=== PATIENT | male | born 1940 | race Two or more races ===

== ENCOUNTER 2022-12-06 11:38 | Inpatient (IN) | payer OTHER ==
[~2022-12-06] VITALS: Ht 172.7 cm; Wt 60.2 kg
[2022-12-06] MEDS ORDERED: SODIUM CHLORIDE 0.9% 1,000 ML IV ONE ×3 (12:00→16:15)
[2022-12-06] MEDS ORDERED: InsuLIN REG 1unit/0.01ml Soln (100units/ml) IV ONE (12:00)
[2022-12-06 12:18] LABS: Hematocrit 38.7 % (41.0-53.0); Hemoglobin 12.6 g/dL (13.5-17.5); Mean Corpuscular Hemoglobin 31.3 pg (28.0-32.0); Mean Corpuscular Hgb Conc. 32.7 g/dL (32.0-36.0); Mean Corpuscular Volume 95.6 fL (80.0-100.0); Red Blood Cells 4.04 10^6/uL (4.5-5.90); Red Cell Distribution Width 13.1 % (11.8-14.3)
[2022-12-06 12:23] LABS: Basophils % (manual) 0 (0.0-2.0); Blast Cells 0; Eosinophils % (manual) 0 (0-7); Metamyelocytes % 0; Myelocytes % 0; Promyelocytes % 0; Reactive Lymphocytes 0
[2022-12-06 12:32] LABS: Albumin 2.7 g/dL (3.4-5.0); Calcium 9.7 mg/dL (8.5-10.1); Potassium 4.1 mmol/L (3.5-5.1)
[2022-12-06 12:41] LABS: BUN/Creatinine Ratio 15.1; Bilirubin, Total 0.9 mg/dL (0.2-1.0); Total Protein 8.2 g/dL (6.4-8.2)
[2022-12-06 14:15] LABS: Lactic Acid w/Reflex 5.6 mmol/L (0.4-2.0)
[2022-12-06 14:46] LABS: Band Neutrophils % (manual) 10; Lymphocytes % (manual) 4 (10.0-50.0); Monocytes % (manual) 6 (0-12)
[2022-12-06] MEDS ORDERED: INSULIN LANTUS (GLARGINE) 1 /0.01ml (100units/ml) SC ONE (15:45)
[2022-12-06] MEDS ORDERED: DEXTROSE (50%) 50ML SYRG IV PRN (15:45)
[2022-12-06] MEDS: ACCU-CHEK COMFORT CURVE STRIP VI SCH ×5 (17:14→23:12)
[2022-12-06] MEDS ORDERED: MORPHINE SULFATE INJ 2 MG/ml SYRG IV PRN (17:15)
[2022-12-06] MEDS ORDERED: ONDANSETRON HCL 4 MG/2 ML VIAL IV PRN (17:15)
[2022-12-06] MEDS ORDERED: DOCUSATE SOD 100 MG CAP PO PRN (17:15)
[2022-12-06] MEDS ORDERED: MAALOX PLUS or MAALOX 30 ML PO PRN (17:15)
[2022-12-06] MEDS ORDERED: HYDROcodone-ACET 5/325MG TAB PO PRN (17:15)
[2022-12-06] MEDS ORDERED: ACETAMINOPHEN 325 MG TAB PO PRN (17:15)
[2022-12-06] MEDS ORDERED: VANCOMYCIN PER PHARMACY 0 MG IV SCH (17:15)
[2022-12-06] MEDS: InsuLIN R (HUMAN) 100 UNITS in SODIUM CHL 0.9% 99 ML IV SCH (17:16)
[2022-12-06 17:32] LABS: Urine Bacteria NONE SEEN /hpf (None Seen); Urine Blood 1+ /uL (Negative); Urine Hyaline Cast FEW /lpf (0 - 2); Urine Specific Gravity 1.022 (1.001-1.035); Urine WBC 2 /hpf (0 - 3)
[2022-12-06] MEDS ORDERED: PIPERACILLIN-TAZOB 3.375GM 100 ML IV ONE (18:00)
[2022-12-06] MEDS ORDERED: HALOPERIDOL LACTATE 5 MG/ML INJ VIAL IM ONE (20:00)
[2022-12-06] MEDS: VANCOMYCIN 1,000 MG in SODIUM CHL 0.9% 250 ML IV ONE ×2 (21:00→23:33)
[2022-12-06] MEDS: SODIUM CHLORIDE 0.9% 1,000 ML IV SCH (21:20)
[2022-12-06] MEDS ORDERED: SODIUM BICARBONATE 8.4 % INJ 50ML VIAL IV ONE (21:30)
[2022-12-06] MEDS ORDERED: LORazepam 2MG/ML-1ML VIAL IV ONE (21:30)
[2022-12-06 22:41] LABS: BUN/Creatinine Ratio 15.2; Calcium 8.2 mg/dL (8.5-10.1); Potassium 4.1 mmol/L (3.5-5.1)
[2022-12-07] VITALS (30 sets, daily range): BP systolic 61–161; BP diastolic 34–117
[2022-12-07] MEDS: ACCU-CHEK COMFORT CURVE STRIP VI SCH ×13 (00:01→20:43)
[2022-12-07] MEDS ORDERED: NOREPINEPHRINE 8 MG/250ML KIT 250 ML IV ONE (00:39)
[2022-12-07] MEDS: NOREPINEPHRINE 8 MG/250ML KIT 250 ML IV SCH ×3 (00:49→23:11)
[2022-12-07] MEDS ORDERED: LORazepam 2MG/ML-1ML VIAL IV ONE (01:00)
[2022-12-07] MEDS: D5W/SOD CHL 0.45% 1,000 ML IV SCH ×4 (01:30→22:25)
[2022-12-07] MEDS ORDERED: ETOMIDATE (2MG/ML) 20ML VIAL IV ONE ×2 (01:34→01:45)
[2022-12-07] MEDS ORDERED: SUCCINYLCHOLINE CHLORIDE 20 MG/ML 10ML VIAL IV ONE ×2 (01:34→01:45)
[2022-12-07] MEDS ORDERED: MIDAZOLAM DRIP 50 mg/50mL 50 ML IV ONE (01:35)
[2022-12-07] MEDS: MIDAZOLAM DRIP 50 mg/50mL 50 ML IV SCH ×3 (01:45→23:40)
[2022-12-07] MEDS: PHENYLEPHRINE IV 250 ML IV SCH ×4 (01:55→23:38)
[2022-12-07] MEDS: VASOPRESSIN 20 UNITS in SODIUM CHL 0.9% 99 ML IV SCH ×2 (03:00→14:46)
[2022-12-07] MEDS: SODIUM CHLORIDE 0.9% 1,000 ML IV SCH (03:15)
[2022-12-07] MEDS ORDERED: VASOPRESSIN 20 UNIT/ML ONE (04:09)
[2022-12-07] MEDS: PIPERACILLIN-TAZOB 3.375GM 100 ML IV SCH ×4 (04:52→21:00)
[2022-12-07 06:48] LABS: BUN/Creatinine Ratio 14.2; Potassium 4.4 mmol/L (3.5-5.1)
[2022-12-07 06:51] LABS: Hematocrit 32.4 % (41.0-53.0); Hemoglobin 10.5 g/dL (13.5-17.5); Mean Corpuscular Hemoglobin 31.4 pg (28.0-32.0); Mean Corpuscular Hgb Conc. 32.4 g/dL (32.0-36.0); Mean Corpuscular Volume 96.8 fL (80.0-100.0); Red Blood Cells 3.35 10^6/uL (4.5-5.90); Red Cell Distribution Width 13.1 % (11.8-14.3); White Blood Cell 2.4 10^3/uL (4.4-10.8)
[2022-12-07 06:56] LABS: Basophils % (manual) 0 (0.0-2.0); Blast Cells 0; Eosinophils % (manual) 0 (0-7); Metamyelocytes % 0; Promyelocytes % 0; Reactive Lymphocytes 0
[2022-12-07 08:28] LABS: Band Neutrophils % (manual) 36; Lymphocytes % (manual) 44 (10.0-50.0); Monocytes % (manual) 1 (0-12); Myelocytes % 6
[2022-12-07] MEDS: InsuLIN R (HUMAN) 100 UNITS in SODIUM CHL 0.9% 99 ML IV SCH ×6 (09:00→16:32)
[2022-12-07] MEDS ORDERED: INSULIN LANTUS (GLARGINE) 1 /0.01ml (100units/ml) SC SCH (10:00)
[2022-12-07] MEDS ORDERED: SODIUM BICARBONATE 8.4 % INJ 50ML VIAL IV ONE ×6 (10:37→22:15)
[2022-12-07] MEDS ORDERED: SODIUM BICARBONATE 50ML VIAL 100 ML in D5W 5% 1,000 ML IV ONE (13:15)
[2022-12-07] MEDS ORDERED: ENOXAPARIN SOD 30 MG/0.3 ML SYRINGE SC ONE (13:45)
[2022-12-07] MEDS ORDERED: PANTOPRAZOLE 40 MG/10 ML VIAL INJ IV ONE (13:45)
[2022-12-07] MEDS ORDERED: VANCOMYCIN 1GM/250ML 250 ML IV ONE (14:00)
[2022-12-07] MEDS ORDERED: EPINEPHrine HCL 250 ML IV SCH (14:15)
[2022-12-07] MEDS ORDERED: fentaNYL Drip 2500mCg/250mlNS 250 ML IV SCH (14:45)
[2022-12-07] MEDS ORDERED: D5W/SOD CHL 0.45% 1,000 ML IV SCH (15:00)
[2022-12-07 15:44] LABS: Hemoglobin 7.9 g/dL (13.5-17.5)
[2022-12-07 15:46] LABS: Hematocrit 23.4 % (41.0-53.0); Mean Corpuscular Hemoglobin 31.5 pg (28.0-32.0); Mean Corpuscular Hgb Conc. 33.9 g/dL (32.0-36.0); Red Blood Cells 2.52 10^6/uL (4.5-5.90); Red Cell Distribution Width 12.9 % (11.8-14.3)
[2022-12-07 15:55] LABS: White Blood Cell 1.8 10^3/uL (4.4-10.8)
[2022-12-07 15:57] LABS: Basophils % (manual) 0 (0.0-2.0); Blast Cells 0; Eosinophils % (manual) 0 (0-7); Promyelocytes % 0; Reactive Lymphocytes 0
[2022-12-07 16:01] LABS: Alanine Aminotransferase 939 U/L (16-61); Anion Gap 16 (5-15); BUN/Creatinine Ratio 13.6; Blood Urea Nitrogen 33 mg/dL (7-18); Calcium 6.5 mg/dL (8.5-10.1); Carbon Dioxide 27 mmol/L (21-32); Chloride 113 mmol/L (98-107); GFR African American 33 mL/min; GFR Non-African American 27 mL/min; Glucose 108 mg/dL (74-106); Magnesium 1.8 mg/dL (1.6-2.6); Potassium 4.7 mmol/L (3.5-5.1); Sodium 156 mmol/L (136-145)
[2022-12-07 16:12] LABS: Alkaline Phosphatase 55 U/L (45-117); Bilirubin, Total 0.6 mg/dL (0.2-1.0); Total Protein 2.9 g/dL (6.4-8.2)
[2022-12-07] MEDS ORDERED: SODIUM BICARBONATE 8.4% INJ 50ML SYRINGE ONE (16:13)
[2022-12-07] MEDS ORDERED: HYDROCORTISONE SOD SUCC 100 MG/2ML INJ VIAL IV ONE (16:15)
[2022-12-07 16:28] LABS: Band Neutrophils % (manual) 25; Lymphocytes % (manual) 27 (10.0-50.0); Metamyelocytes % 7; Monocytes % (manual) 4 (0-12); Myelocytes % 2
[2022-12-07] MEDS ORDERED: SODIUM BICARBONATE 50ML VIAL 150 ML in D5W 5% 1,000 ML IV SCH (16:30)
[2022-12-07 17:16] LABS: Aspartate Aminotransferase 2285 U/L (15-37)
[2022-12-07 17:26] LABS: Lactic Acid w/Reflex 13.8 mmol/L (0.4-2.0)
[2022-12-07] MEDS ORDERED: DEXTROSE (50%) 50ML SYRG IV PRN (17:45)
[2022-12-07] MEDS ORDERED: BUMETANIDE 2.5mg/10ml (0.25 mg/ml) INJ IV ONE ×3 (18:30→20:45)
[2022-12-07] MEDS: InsuLIN REG 1unit/0.01ml Soln (100units/ml) SC SCH (20:00)
[2022-12-07] MEDS ORDERED: HYDROCORTISONE SOD SUCC 100 MG/2ML INJ VIAL IV SCH (22:00)
[2022-12-08] MEDS: InsuLIN REG 1unit/0.01ml Soln (100units/ml) SC SCH
[2022-12-08] MEDS: ACCU-CHEK COMFORT CURVE STRIP VI SCH (00:09)
[2022-12-08 00:22] VITALS: BP_DIAS 73
[2022-12-08] MEDS ORDERED: AMIODARONE 450mg/250ml AE 250 ML IV ONE (00:26)
[2022-12-08] MEDS ORDERED: SODIUM BICARBONATE 8.4 % INJ 50ML VIAL IV ONE ×3 (00:45→04:00)
[2022-12-08] MEDS ORDERED: AMIODARONE 450mg/250ml AE 250 ML IV SCH ×2 (01:00→07:00)
[2022-12-08] MEDS: PHENYLEPHRINE IV 250 ML IV SCH (01:38)
[2022-12-08 02:28] VITALS: BP 82/46
[2022-12-08] MEDS ORDERED: SODIUM BICARBONATE 8.4% INJ 50ML SYRINGE ONE (03:06)
[2022-12-08] MEDS ORDERED: PANTOPRAZOLE 40 MG/10 ML VIAL INJ IV SCH (10:00)
[2022-12-08] MEDS ORDERED: ENOXAPARIN SOD 30 MG/0.3 ML SYRINGE SC SCH (10:00)
== END 2022-12-08 03:40 | DRG 871 ==
LOC: ER 11:38 → EDBD 11:38 → TELE 17:27 → ICU CENTRL 12-07 12:52
PROVIDERS: ADMIT Hospitalist; ATTEND Hospitalist
PROC: 5A1935Z Respiratory Ventilation, Less than 24 Consecutive Hours (ICD-10-PCS; principal; 2022-12-07)
PROC: 0BH17EZ Insertion of Endotracheal Airway into Trachea, Via Natural or Artificial Opening (ICD-10-PCS; 2022-12-07)
PROC: 05HM33Z Insertion of Infusion Device into Right Internal Jugular Vein, Percutaneous Approach (ICD-10-PCS; 2022-12-07)
PROC: B543ZZA Ultrasonography of Right Jugular Veins, Guidance (ICD-10-PCS; 2022-12-07)
PROC: 4A043B0 Measurement of Venous Pressure, Central, Percutaneous Approach (ICD-10-PCS; 2022-12-07)
PROC: 5A12012 Performance of Cardiac Output, Single, Manual (ICD-10-PCS; 2022-12-08)
DX: A41.9 Sepsis, unspecified organism (principal); E11.10 Type 2 diabetes mellitus with ketoacidosis without coma; I21.4 Non-ST elevation (NSTEMI) myocardial infarction; J96.01 Acute respiratory failure with hypoxia; R65.21 Severe sepsis with septic shock; J18.9 Pneumonia, unspecified organism; E44.0 Moderate protein-calorie malnutrition; J44.0 Chronic obstructive pulmonary disease with (acute) lower respiratory infection; N17.9 Acute kidney failure, unspecified; I48.91 Unspecified atrial fibrillation; I46.9 Cardiac arrest, cause unspecified; Z20.822 Contact with and (suspected) exposure to COVID-19; N18.9 Chronic kidney disease, unspecified; E11.22 Type 2 diabetes mellitus with diabetic chronic kidney disease; I50.9 Heart failure, unspecified; Z79.4 Long term (current) use of insulin; Z83.3 Family history of diabetes mellitus; Z68.20 Body mass index [BMI] 20.0-20.9, adult
CPT/HCPCS: 36415; 36600; 71045; 80048; 80053; 80202; 81001; 82010; 82805; 82962; 83036; 83605; 83735; 84484; 85007; 85027; 87040; 87070; 87077; 87081; 87186; 87205; 87426; 92950; 93005; 93306; 94002; 94003; 96361; 96365; 96367; 96372; 96375; 99291; C9113; G0378; J0171; J0330; J1815; J2250; J2543